=== PATIENT | female | born 1965 | race Caucasian/White ===

== ENCOUNTER → 2016-08-17 | Outpatient (CLI) | payer BC ==
[2016-08-17 14:51] LABS: URINE APPEARANCE CLEAR (CLEAR); URINE BILIRUBIN NEG (NEG); URINE COLOR YELLOW; URINE NITRITE NEG (NEG); URINE SPECIFIC GRAVITY 1.014 (1.000-1.030); UROBILINOGEN NEG (NEG)
[2016-08-17 15:07] LABS: MANUAL MICROSCOPIC REQUIRED? NO; REVIEW REQ? NO
== END | disposition home or self-care (01) ==
LOC: C.LABSPEC 14:04
PROVIDERS: ATTEND Obstetrics & Gynecology
DX: R30.0 Dysuria (principal)

== ENCOUNTER → 2016-08-17 | Outpatient (CLI) | payer BC | END | disposition home or self-care (01) | LOC: C.PAPS 15:03 | PROVIDERS: ATTEND Obstetrics & Gynecology | DX: Z01.419 Encounter for gynecological examination (general) (routine) without abnormal findings (principal) ==

== ENCOUNTER → 2016-11-12 | Outpatient (CLI) | payer BC ==
--- NOTE | 2016-11-12 13:48 | MAMMOGRAPHY REPORT ---
BILATERAL DIGITAL DIAGNOSTIC MAMMOGRAM TOMOSYNTHESIS WITH CAD: 11/12/2016 CLINICAL HISTORY: The patient has a history of right breast cancer status post lumpectomy in 2012 her e for follow-up. She reports she had recent right lateral breast tenderness which has since resolved . She denies any palpable lumps or other current complaints. TECHNIQUE: Breast tomosynthesis in addition to standard 2D mammography was performed. Current study was also evaluated with a Computer Aided Detection (CAD) system. Bilateral CC and MLO 2-D and tomosy nthesis images and spot magnification right cc and ML views were obtained. COMPARISON: Comparison is made to exams dated: 12/19/2014 mammogram, 12/04/2013 mammogram, 11/22/2012 ma mmogram, 11/18/2011 mammogram, and 11/13/2010 mammogram. BREAST COMPOSITION: The tissue of both breasts is heterogeneously dense, which may obscure small mas ses. FINDINGS: Again noted are post surgical changes in the right upper outer quadrant from prior lumpect simon, including stable density and architectural distortion at the lumpectomy bed. A linear scar ibis er denotes a scar on the right upper outer breast. Spot magnification views of the lumpectomy bed de monstrate a small 4 mm cluster of coarse heterogeneous calcifications in the right lateral breast in the region of the patient's scar. The calcifications are likely not significantly changed compared t o the November 2014 exam although there are technical differences which make it difficult to make an accu rate comparison. The calcifications are probably benign and likely represent dystrophic calcificatio ns from fat necrosis. Recommend short interval follow-up in 6 months to confirm stability on magnifi cation views. The remainder of both breasts are stable compared to prior exams, without suspicious masses, calcific ations, or areas of architectural distortion noted. IMPRESSION: ACR-BI-RADS CATEGORY 3: PROBABLY BENIGN 1. Small cluster of coarse calcifications in the right lateral breast near the lumpectomy bed are li ade stable compared to the November 2014 exam, and are probably benign and may represent dystrophic calc ifications related to prior surgery. Recommend follow-up diagnostic mammograms of the right breast i n 6 months to confirm stability on spot magnification views. 2. No mammographic evidence of malignancy in the left breast. 3. Recommend clinical follow-up for right breast pain which has currently resolved. The patient has been verbally notified of the results. Approximately 10% of breast cancers are not detected with mammography. A negative mammographic report should not delay biopsy if a clinically suggestive mass is present. Kimberly Doyle M.D. ah/:11/12/2016 10:41:40 [employer]: [employer] GEE)Collette), [facility] letter sent: Follow Up Recommended 3 BI-RADS Code: ACR-BI-RADS Category 3: Probably Benign
== END | disposition home or self-care (01) ==
LOC: C.MAMM 08:19
PROVIDERS: ATTEND Obstetrics & Gynecology
DX: R92.1 Mammographic calcification found on diagnostic imaging of breast (principal); Z85.3 Personal history of malignant neoplasm of breast; Z08 Encounter for follow-up examination after completed treatment for malignant neoplasm

== ENCOUNTER → 2016-12-21 | Outpatient (CLI) | payer BC ==
[2016-12-21 12:56] LABS: ALT/SGPT 16 U/L (12-78); BLOOD UREA NITROGEN 13 mg/dl (7-18); BUN/CREATININE RATIO 16.1 (10-20); CALCIUM 8.9 mg/dl (8.5-10.1); CARBON DIOXIDE 30 mmol/L (21-32); CHLORIDE 109 mmol/L (98-107); CHOLESTEROL 174 mg/dl (0-200); CREATININE 0.79 mg/dl (0.60-1.20); GLUCOSE,FASTING 85 mg/dl (70-99); POTASSIUM 4.1 mmol/L (3.5-5.1); SODIUM 142 mmol/L (136-145); TRIGLYCERIDES 91 mg/dl (0-150); VERY LOW DENSITY LIPOPROT CALC 18 mg/dl
[2016-12-21 13:00] LABS: ALB/GLOB RATIO 1.1 (0.9-2); ALKALINE PHOSPHATASE 79 U/L (45-117); AST/SGOT 11 U/L (15-37); CHOLESTEROL/HDL RATIO 3.2; HDL CHOLESTEROL 55 mg/dl; LDL CHOLESTEROL CALCULATED 101 mg/dl
== END | disposition home or self-care (01) ==
LOC: C.LABPBG 08:44
PROVIDERS: ATTEND Physician Assistant
DX: Z00.00 Encounter for general adult medical examination without abnormal findings (principal)

== ENCOUNTER → 2016-12-27 | Outpatient (CLI) | payer BC ==
--- NOTE | 2016-12-27 09:13 | DIAGNOSTIC IMAGING REPORT ---
RENAL ULTRASOUND CLINICAL HISTORY: Dysuria. Low back pain. COMPARISON STUDY: None. TECHNIQUE: Sonography of the kidneys and the urinary bladder was performed. FINDINGS: The right kidney measures 10.1 x 4.9 x 4.1 cm and the left measures 9.1 x 5.1 x 5.6 cm. There is no hydronephrosis. Both ureteral jets were identified. No calculi or masses are identified by sonography. IMPRESSION: Unremarkable renal ultrasound. No hydronephrosis. Electronically signed by: Colin Sandoval M.D. 12/27/2016 9:12 AM Dictated Date/Time: 12/27/2016 9:11 AM
--- NOTE | 2016-12-27 09:47 | DIAGNOSTIC IMAGING REPORT ---
L-SPINE MIN 4 VIEWS ROUTINE CLINICAL HISTORY: Low back pain. History of fall. COMPARISON: None FINDINGS: Note is made of a 1.2 cm of anterolisthesis of L5 on S1. This is likely due to bilateral L5 pars defects. Otherwise, alignment of the lumbar spine is anatomic. There is no acute fracture. There is moderate disc space narrowing at L5-S1. There is mild disc space narrowing and osteophytosis at multiple additional levels within the lumbar spine. Pelvic calcifications likely reflect phleboliths. IMPRESSION: 1. Grade II anterolisthesis of L5 on S1 likely due to bilateral L5 pars defects. 2. No acute lumbar spine fracture. 3. Moderate disc space narrowing at L5-S1 with mild disc space narrowing and osteophytosis within multiple additional levels of the lumbar spine. Electronically signed by: Colin Sandoval M.D. 12/27/2016 9:46 AM Dictated Date/Time: 12/27/2016 9:44 AM
== END | disposition home or self-care (01) ==
LOC: C.ULTR 08:37
PROVIDERS: ATTEND Physician Assistant
DX: M54.5 Low back pain (principal); Z91.81 History of falling

== ENCOUNTER → 2017-05-18 | Outpatient (CLI) | payer BC ==
--- NOTE | 2017-05-18 13:41 | MAMMOGRAPHY REPORT ---
UNILATERAL RIGHT DIGITAL DIAGNOSTIC MAMMOGRAM TOMOSYNTHESIS WITH CAD: 05/18/2017 CLINICAL HISTORY: 51-year-old woman with a personal history of right breast cancer status post breast conserving treatment presents for close follow-up of a grouping of calcifications anterior to the carmona rgical site in the right breast. TECHNIQUE: Right breast tomosynthesis in addition to standard 2D mammography was performed. Spot mag nification right CC and ML views were also obtained. Current study was also evaluated with a Compute r Aided Detection (CAD) system. COMPARISON: Comparison is made to exams dated: 11/12/2016 mammogram - [facility], mammogram, 12/04/2013 mammogram, 11/22/2012 mammogram, 11/18/2011 mammogram, and 11/13/2010 mammo gram. BREAST COMPOSITION: The tissue of the right breast is heterogeneously dense, which may obscure small masses. FINDINGS: There is expected architectural distortion in the upper outer middle to posterior right cathleen ast, at the site of prior lumpectomy. A linear scar marker overlies the skin incision in the right u pper outer middle one third of the breast. There is a single punctate microcalcification located christopher trally at the surgical site and anterior to the surgical site on the spot magnification cc view there are approximately 5 somewhat coarse microcalcifications. When comparing back to prior available nino mograms, these microcalcifications appear similar to those obtained 11/12/2016, and the calcification s also appear similar dating back to 2014 and likely 2012, suggesting benignity. Additionally, the d o not have a fine linear branching morphology as the patient's initially biopsy-proven DCIS. However , another short interval follow-up right diagnostic mammogram including spot magnification views is r ecommended to ensure longer stability. Annual left mammography will also be due at that time. No other suspicious masses, calcifications, areas of unexpected architectural distortion or asymmetry is seen in the right breast. IMPRESSION: ACR-BI-RADS CATEGORY 3: PROBABLY BENIGN Stable mammographic appearance of the right breast including approximately 5 somewhat coarse calcific ations anterior to the surgical site, best seen on the spot magnification CC view. Another short int erval follow-up right diagnostic tomosynthesis mammogram including spot magnification views is recomm ended to ensure longer stability in 6 months. Annual left mammography will also be due at that time. These results and recommendations were discussed with the patient at the time of the exam. Approximately 10% of breast cancers are not detected with mammography. A negative mammographic report should not delay biopsy if a clinically suggestive mass is present. Deb Hare M.D. ay/:05/18/2017 12:35:01 Orthopedic Specialist: Yamile GEE)(Jorge Luis), [facility] letter sent: Follow Up Recommended 3 BI-RADS Code: ACR-BI-RADS Category 3: Probably Benign
== END | disposition home or self-care (01) ==
LOC: C.MAMM 08:45
PROVIDERS: ATTEND Obstetrics & Gynecology
DX: R92.0 Mammographic microcalcification found on diagnostic imaging of breast (principal)